=== PATIENT | male | born 1940 | race Caucasian/White ===

== ENCOUNTER 2018-04-01 10:32 | Emergency (ER) | payer OTHER ==
[~2018-04-01] VITALS: Ht 180.3 cm; Wt 103.6 kg
[~2018-04-01 10:32] MED LIST: AMLODIPINE BESYL5 MG PO; ASPIR-LOW81 MG PO; ATENOLOL25 MG PO; CRESTOR5 MG PO; FOSINOPRIL SODI10 MG PO; GLIPIZIDE10 MG PO; GLUCOPHAGE1000 MG PO; LANTUS 10100 UNITS/ SC; NOVOLOG 10100 UNITS/ SC; TERAZOSIN HCL2 MG PO
[2018-04-01] MEDS ORDERED: LANTUS 3 M100 UNITS1 SC (10:55)
[2018-04-01] MEDS ORDERED: MAGNESIUM250 MG PO (10:57)
[2018-04-01] MEDS ORDERED: VITAMIN B-121000 MCG PO (10:57)
[2018-04-01 12:53] VITALS: BP 130/83
== END 2018-04-01 12:54 | disposition home or self-care (01) ==
LOC: EME 10:32
DX: S83.92XA Sprain of unspecified site of left knee, initial encounter (principal); M25.462 Effusion, left knee; X50.1XXA Overexertion from prolonged static or awkward postures, initial encounter; I10 Essential (primary) hypertension; E78.5 Hyperlipidemia, unspecified; E11.9 Type 2 diabetes mellitus without complications; Z79.4 Long term (current) use of insulin; Z79.82 Long term (current) use of aspirin
CPT/HCPCS: 73564